=== PATIENT | female | born 1985 | race American Indian/Alaskan Native ===

== ENCOUNTER 2018-09-27 11:19 | Emergency (ER) | payer MEDICAID ==
[2018-09-27 11:27] VITALS: BP 166/119
--- NOTE | 2018-09-27 11:28 | Event Note ---
ED Screening Note ED Screening Note: pt is c/o N/V that began three days ago has a hx of gastroparesis has burning in the epigastric region after frequent vomiting states that she was having diarrhea but it resolved tolerating water intake PMHx HTN, DM LNMP August 25 no allergies to meds +smoker no ETOH use no drug use This initial assessment/diagnostic orders/clinical plan/treatment(s) is/are subject to change based on patients health status, clinical progression and re- assessment by fellow clinical providers in the ED. Further treatment and workup at subsequent clinical providers discretion. Patient/guardian urged not to elope from the ED as their condition may be serious if not clinically assessed and managed. Initial orders include: labs, UA, urine preg
[2018-09-27] MEDS ORDERED: TORADOL IV ONE (12:04)
[2018-09-27] MEDS ORDERED: BENADRYL IV ONE (12:04)
[2018-09-27] MEDS ORDERED: NACL 0.9% 1000 ML 1,000 ML IV ONE (12:04)
[2018-09-27] MEDS ORDERED: BENTYL IM ONE (12:04)
[2018-09-27] MEDS ORDERED: REGLAN IV ONE (12:04)
[2018-09-27 12:29] LABS: Bilirubin,Urine NEG (Negative); Blood,Urine NEG (Negative); Color,Urine Yellow (Yellow); Urobilinogen,Urine < 2.0 mg/dL (<2.0)
[2018-09-27 12:32] LABS: HCG Qualitative,Urine Negative (Negative)
[2018-09-27 12:33] LABS: Protein,Urine >500 mg/dL (Negative)
[2018-09-27] MEDS: GEODON IM ONE ×2 (13:36→14:43)
--- NOTE | 2018-09-27 14:52 | Emergency Department Report ---
Vomiting/Diarrhea - HPI Chief Complaint: Abdominal Pain Stated Complaint: ABD PAIN Time Seen by Provider: 09/27/18 11:48 Duration: Today Severity: moderate Nausea/Vomiting Severity: Severe Diarrhea Severity: None Pain Location: Epigastric Pain Severity: Moderate Symptoms: No Watery Diarrhea, No Bloody diarrhea, No Fever, No Able to Tolerate Fluids, No Recent Unusual Foods, No Recent Untreated Water, No Recent use of Antibiotics, No Family w/ Similar Symptoms, No Contacts w/ Similar Symptoms, No Rash, No Hematuria, No Recent URI Symptoms Other History: Patient has a history of diabetes with episodes of gastroparesis. Patient states she is having exacerbation of her gastroparesis ED Review of Systems ROS: Stated complaint: ABD PAIN Other details as noted in HPI Comment: All other systems reviewed and negative ED Past Medical Hx - Past Medical History Hx Hypertension: Yes Hx Congestive Heart Failure: No Hx Diabetes: Yes Hx Asthma: No Hx COPD: No Additional medical history: GASTROPARESIS - Surgical History Additional Surgical History: JAW SURGERY - Social History Smoking Status: Current Every Day Smoker Substance Use Type: None - Medications Home Medications: Home Medications Medication Instructions Recorded Confirmed Last Taken Type Labetalol [Labetalol 200mg TAB] 200 mg PO BID #60 tablet 11/06/14 12/15/15 Unknown Rx Lisinopril/Hydrochlorothiazide 1 each PO QDAY #30 tablet 11/06/14 12/15/15 Unknown Rx [Zestoretic 20-12.5 mg] metFORMIN [Glucophage] 500 mg PO BID #60 tablet 11/06/14 12/15/15 Unknown Rx Insulin NPH Hum/Reg Insulin Hm 22 unit SQ BIDAC #1 vial 12/03/14 12/15/15 Unknown Rx [HumuLIN 70/30 Kwikpen] Dicyclomine [Bentyl] 10 mg PO QID #20 capsule 12/06/14 12/15/15 Unknown Rx Promethazine [Phenergan TAB] 25 mg PO Q6HR PRN #20 tab 01/22/15 12/15/15 Unknown Rx Famotidine [Pepcid] 20 mg PO BID #60 tablet 12/13/15 12/15/15 Unknown Rx HYDROcodone/APAP 5-325 [[place] 1 each PO Q4HR PRN #20 tablet 12/13/15 12/15/15 Unknown Rx 5/325] Ondansetron [Zofran Odt] 4 mg PO Q8HR PRN #20 tab.rapdis 12/13/15 12/15/15 Unknown Rx Dicyclomine [Bentyl] 20 mg PO QID #10 tablet 09/27/18 Unknown Rx Famotidine [Pepcid] 40 mg PO QHS #10 tablet 09/27/18 Unknown Rx Ondansetron [Zofran Odt] 4 mg PO Q8HR #10 tab.rapdis 09/27/18 Unknown Rx Vomiting Diarrhea Exam - Exam General: Vital signs noted. No distress. Alert and acting appropriately. HEENT: Yes Moist Mucous Membranes, No Pharyngeal Erythema, No Pharyngeal Exudates, No Rhinorrhea, No Conjuctival Injection, No Frontal Tenderness, No Maxillary Tenderness Neck: No Adenopathy, No Rigidity Lungs: Yes Clear Lung Sounds, Yes Good Air Exchange, No Wheezes, No Stridor, No Cough, No Nasal Flaring, No Retractions, No Use of Accessory Muscles Heart exam: Regular: Yes, Murmur: No, Tachycardia: No Abdomen: Tenderness: Yes (epigastric), Peritoneal Signs: No, Distention: No, Hyperactive Bowel sounds: No Skin exam: Rash: No, Edema: No, Normal turgor: Yes Neurologic: Alert and oriented, no deficits. Musculoskeletal: Unremarkable. ED Course Vital Signs 09/27/18 09/27/18 09/27/18 11:26 13:35 14:05 Temperature 98.5 F Pulse Rate 106 H Respiratory 17 18 18 Rate Blood Pressure 166/119 O2 Sat by Pulse 100 Oximetry ED Medical Decision Making - Lab Data Lab Results 09/27/18 09/27/18 Range/Units 11:31 12:06 POC Glucose 210 H (70-105) Urine Color Yellow (Yellow) Urine Turbidity Slightly-cloudy (Clear) Urine pH 7.0 (5.0-7.0) Ur Specific [place] 1.013 (1.003-1.030) Urine Protein >500 (Negative) mg/dL Urine Glucose (UA) 150 (Negative) mg/dL Urine Ketones Tr (Negative) mg/dL Urine Blood Neg (Negative) Urine Nitrite Neg (Negative) Urine Bilirubin Neg (Negative) Urine Urobilinogen < 2.0 (<2.0) mg/dL Ur Leukocyte Esterase Sm (Negative) Urine WBC (Auto) 22.0 H (0.0-6.0) /HPF Urine RBC (Auto) 3.0 (0.0-6.0) /HPF U Epithel Cells (Auto) 3.0 (0-13.0) /HPF Urine HCG, Qual Negative (Negative) - Medical Decision Making Patient was given multiple meds to help with her nausea and vomiting. Symptoms have improved. Patient's urinalysis shows that she has a mild urinary tract in fection and patient was started on Macrobid for this as well. Critical care attestation.: If time is entered above; I have spent that time in minutes in the direct care of this critically ill patient, excluding procedure time. ED Disposition Clinical Impression: Gastroparesis Acute cystitis Qualifiers: Hematuria presence: without hematuria Qualified Code(s): N30.00 - Acute cystitis without hematuria Disposition: - TO HOME OR SELFCARE Is pt being admited?: No Does the pt Need Aspirin: No Condition: Stable Instructions: Acute Nausea and Vomiting (ED), Urinary Tract Infection in Women (ED) Time of Disposition: 14:51
== END 2018-09-27 14:58 | disposition home or self-care (01) ==
LOC: ED 11:19
DX: E11.43 Type 2 diabetes mellitus with diabetic autonomic (poly)neuropathy (principal); K31.84 Gastroparesis; N30.00 Acute cystitis without hematuria; I10 Essential (primary) hypertension; F17.200 Nicotine dependence, unspecified, uncomplicated; Z79.899 Other long term (current) drug therapy; Z79.4 Long term (current) use of insulin
CPT/HCPCS: 81001; 81025; 82962; 87086; 96372; 96374; 96375; 99284; J0500; J1200; J1885; J2765; J3486

== ENCOUNTER 2018-09-29 15:52 | Emergency (ER) | payer MEDICAID ==
--- NOTE | 2018-09-29 15:56 | Event Note ---
ED Screening Note ED Screening Note: TO ER VIA EMS HERE FRIDAY THEY GAVE ME BAD MEDS CO GEN WEAKNESS This initial assessment/diagnostic orders/clinical plan/treatment(s) is/are subject to change based on patients health status, clinical progression and re- assessment by fellow clinical providers in the ED. Further treatment and workup at subsequent clinical providers discretion. Patient/guardian urged not to elope from the ED as their condition may be serious if not clinically assessed and managed. Initial orders include:
== END 2018-09-29 19:00 | disposition left against medical advice (07) ==
LOC: ED 15:52
DX: R53.1 Weakness (principal); E11.9 Type 2 diabetes mellitus without complications; I10 Essential (primary) hypertension; Z98.890 Other specified postprocedural states
CPT/HCPCS: 99282